=== PATIENT | male | born 1970 | race Caucasian/White ===

== ENCOUNTER → 2021-02-14 | Outpatient (CLI) | payer OTHER ==
--- NOTE | 2021-02-14 13:10 | REP ---
INDICATION: BILATERAL KNEE PAIN. COMPARISON: None. TECHNIQUE: Bilateral knee series: Total of 6 views. FINDINGS: AP, lateral, and sunrise views of each knee demonstrate patellofemoral compartment osteoarthritic spurring bilaterally. Joint spaces are preserved. No bony erosive changes seen. Periarticular soft tissues are unremarkable. IMPRESSION: Mild patellofemoral osteoarthritis bilaterally.. <Electronically signed by Keaton Monaco > 02/14/21 1277
== END ==
LOC: M RAD 12:05
PROVIDERS: ATTEND Family Medicine Addiction Medicine
DX: M25.569 Pain in unspecified knee (principal)

== ENCOUNTER 2025-03-29 10:38 | Emergency (ER) | payer OTHER, SELFPAY ==
[~2025-03-29] VITALS: Ht 180.3 cm; Wt 126.4 kg
[2025-03-29 10:49] VITALS: TEMP 97.3
[2025-03-29 11:18] LABS: BASO # 0.1 10^3/uL (0.0-0.2); BASO % 0.6 % (0.0-1.0); EOS # 0.3 10^3/uL (0.0-0.5); EOS % 3.0 % (0.0-3.0); LYMPH # 1.9 10^3/uL (1.5-5.0); LYMPH % 20.0 % (24.0-44.0); MONO # 0.7 10^3/uL (0.0-0.8); MONO % 7.0 % (2.0-8.0); NEUTROPHILS # 6.4 10^3/uL (1.5-8.5); NEUTROPHILS % 68.9 % (36.0-66.0); PLATELET COUNT, AUTOMATED 373 10^3/uL (150-450)
[2025-03-29] MEDS: ASPIRIN 81 MG CHEWABLE TABLET PO ONE (11:19)
[2025-03-29 11:45] LABS: ALT/SGPT 38.0 U/L (7.0-40); AST/SGOT 32.0 U/L (<34); CALCIUM LEVEL 10.2 MG/DL (8.5-10.1); CARBON DIOXIDE LEVEL 26.0 MMOL/L (20-31); CHLORIDE LEVEL 100.0 MMOL/L (98-107); CK-MB VALUE MASS 1.0 NG/ML (<3.6); CREATININE FOR GFR 1.06 MG/DL (0.70-1.30); GLOMERULAR FILTRATION RATE 82.9 (>56); POTASSIUM SERUM 4.4 MMOL/L (3.5-5.1); SODIUM LEVEL 136.0 MMOL/L (136-145)
[2025-03-29 11:51] LABS: CPK CREATINE PHOSPHOKINASE 222.0 U/L (46-171); MB/CK RELATIVE INDEX 0.45 (< OR =4)
[2025-03-29] MEDS ORDERED: ISOVUE-370 76% 100 ML VIAL As Ordered ONE (12:52)
[2025-03-29 13:02] LABS: CK-MB VALUE MASS 1.3 NG/ML (<3.6)
[2025-03-29 13:03] LABS: CPK CREATINE PHOSPHOKINASE 202.0 U/L (46-171); MB/CK RELATIVE INDEX 0.64 (< OR =4)
[2025-03-29] MEDS ORDERED: PEPC1TAB5 PO (14:46)
[2025-03-29 14:57] VITALS: BP 128/82; O2SAT 94
== END 2025-03-29 15:07 | disposition home or self-care (01) ==
LOC: M ED 10:38
DX: R07.9 Chest pain, unspecified (principal); R06.02 Shortness of breath; Z79.899 Other long term (current) drug therapy
CPT/HCPCS: 36415; 71045; 71275; 80048; 80076; 82550; 82553; 83690; 84443; 84484; 85025; 85379; 93005; 93041; 93970; 94760; 99285; Q9967